=== PATIENT | male | born 1970 | race Caucasian/White ===

== ENCOUNTER 2017-02-27 16:22 | Inpatient (IN) | payer BC ==
[~2017-02-27] VITALS: Ht 193 cm; Wt 143.6 kg
--- NOTE | ~2017-02-27 | ECHO ---
Cardiac Stress Test Demographics Patient Name OMI THOMPSON Date of Study 02/28/2017 Patient Number [id number] Visit Number [id number] Date of 1970 Room Number G6307 Gender Male Number Age 46 year(s) Referring Maisha Grayson Interpreting Maisha Grayson Physician Physician MD Kraig Helton MD Physician Ordering Maisha Grayson Configuration Management Administrator Physician Supervising Maisha Grayson Stress Nancy VALDES MD/LITP MD Leadership Intern [facility] Nurse Tima Hein RN The procedure was explained in detail to the patient. Risks, complications and alternative treatments were reviewed. Written consent was obtained. Medications reviewed with patient prior to procedure. Procedure Type of Study Cardiac Stress Test:TREADMILL STRESS TEST. Procedure Date Date: 02/28/2017 Start: 12:38 PM Indications:Chest pain and Shortness of breath. Allergies - No known allergies. Conclusions Summary Duration:10:29 mins. Achieved: 95% MPHR. METs: 11.10. DP: 30 K. No chest pain. Reason for termination: Fatigue and SOB. EKG: No ischemia. No arrythmias. DTS: 10.3 (Low risk). Risk Factors - The patient's risk factor(s) include: treated dyslipidemia, obesity, lack of physical activity and treated arterial hypertension. Stress Protocol Stress Predicted HR: 172 bpm Signature dtt: Renuka Ferrera dtd: 02/28/17 1238 Physician Self Edit
--- NOTE | ~2017-02-27 | ER ---
PATIENT'S NAME: OMI THOMPSON [facility] AGE: 46 Y [address] ROOM: [place] [address] LOCATION: GPCU ADMIT DATE: 02/27/2017 ER/Outpatient Report DISCHARGE DATE: FAMILY PHYSICIAN: John Cornell MD ATTENDING PHYSICIAN: SABRINA SANTAMARIA Time of Arrival: 1622 hours. Time Seen: 1622 hours. IDENTIFICATION: A 46-year-old male. CHIEF COMPLAINT: Shortness of breath. HISTORY OF PRESENT ILLNESS: The patient is a 46-year-old male, who has had progressive shortness of breath with exertion over the last 6 months. Today, he was helping a friend move, became diaphoretic and short of breath. He states he has also began to get very diaphoretic over the last 6 months. He has a history of vasospastic angina. Had a cath with Dr. Ibrahim showing small vessel occlusion requiring no stents, just medical management in October 2015. The patient is on Ranexa b.i.d. and lisinopril, but again he has been more short of breath. Today, he was seen at [facility] and sent here for possible ST-elevation ID. He is having no chest pain, just been short of breath with exertion and very diaphoretic. No pain at this time. PAST MEDICAL HISTORY: ALLERGIES: NO KNOWN DRUG ALLERGIES. CURRENT MEDICATIONS: 1. Provigil 200 mg q.a.m. 2. Cymbalta 30 mg q.a.m. 3. Zonisamide 150 mg daily. 4. Pantoprazole 40 mg daily. 5. Simvastatin 20 mg daily. 6. Lisinopril 10 mg daily. 7. Ranexa 1000 mg b.i.d. 8. Meloxicam, he has not been taking. 9. Zyrtec 10 mg q.a.m. 10. Fish oil. 11. Mucus Relief. PATIENT'S NAME: OMI THOMPSON [facility] AGE: 46 Y [address] ROOM: [address] [address] LOCATION: GPCU ADMIT DATE: 02/27/2017 ER/Outpatient Report DISCHARGE DATE: FAMILY PHYSICIAN: John Cornell MD ATTENDING PHYSICIAN: SABRINA SANTAMARIA MEDICAL PROBLEMS: Vasospastic angina, sleep apnea, hypertension, gastroesophageal reflux disease. PRIOR SURGERIES: Cholecystectomy, appendectomy, adenoid, sinus surgery, and shoulder surgery. FAMILY HISTORY: No pertinent family history identified. SOCIAL HISTORY: The patient is . Lives here in [place]. Works for the [employer] [place]. Tobacco use, denies. Alcohol use, occasional. Drug use, denies. REVIEW OF SYSTEMS: All systems reviewed negative other than what is noted in the HPI. PHYSICAL EXAMINATION: VITAL SIGNS: Height 6 feet 4 inches, blood pressure 128/80, pulse 105, respirations 20, temperature 97.7, sats 95% on room air. GENERAL: A 46-year-old male, very diaphoretic and clammy, in no acute distress. HEAD: Normocephalic, atraumatic. EARS: TMs not visualized. EYES: Pupils equal and reactive to light and accommodation. Extraocular movements intact. NOSE: Mucosa pink. No lesions or drainage. MOUTH: No lesions. Pharynx benign. NECK: Supple. No lymphadenopathy. No thyromegaly. LUNGS: Clear to auscultation. HEART: Regular rate and rhythm. No murmur, rub, or gallop. ABDOMEN: Bowel sounds present. Soft, nondistended. No hepatosplenomegaly. No palpable masses. Nontender. SKIN: Diaphoretic and clammy. No lesions noted. NEURO: Motor strength 5/5 throughout. Sensation is intact to light touch. EXTREMITIES: No lower extremity edema. No calf tenderness. LABORATORY DATA AND X-RAYS: Chest x-ray, no acute process. Pending radiology over-read. Chemistry panel remarkable only for creatinine of 2.1. Cardiac enzymes are negative. ProBNP less than 30. D-dimer 0.28. CBC: White count 12.4, otherwise negative. INR 0.98. EKG from [facility] reviewed: Tachycardia at 102 beats per minute, inferior ST elevation. EKG here at 1623 hours: Sinus tachycardia at 105 beats per minute, slight ST elevation in lead II, no ST elevation in leads III or F, no reciprocal depression. Repeat EKG at 1642 hours: Sinus tachycardia at 108 beats per minute, slight ST elevation in lead II, no ST elevation in PATIENT'S NAME: OMI THOMPSON [facility] AGE: 46 Y [address] ROOM: [address] [address] [facility] ADMIT DATE: 02/27/2017 ER/Outpatient Report DISCHARGE DATE: FAMILY PHYSICIAN: John Cornell MD ATTENDING PHYSICIAN: SABRINA SANTAMARIA III or F, and no reciprocal depression. IMPRESSION: 1. Dyspnea on exertion. 2. Diaphoresis. 3. Vasospastic angina with nonspecific EKG changes. PLAN: Discussed with Dr. Ferrera, power sewing machine operator as well as Dr. Santamaria, hospitalist. The patient will be admitted per the hospitalist service for serial EKG, enzymes monitoring and on further evaluation of his shortness of breath on exertion, Dr. Ferrera will provide any necessary cardiology consultation. SHELIA TSANG MD CAR/modl /[id number] d: 02/27/172106 t: 03/01/174, OUTPATIENT REPORT
--- NOTE | ~2017-02-27 | HP ---
PATIENT'S NAME: DONNA [facility] AGE: 46 Y [address] ROOM: [place] [id number] LOCATION: GPCU ADMIT DATE: 02/27/2017 History & Physical DISCHARGE DATE: FAMILY PHYSICIAN: John Cornell MD ATTENDING PHYSICIAN: SABRINA MARTIN DATE OF SERVICE: CHIEF COMPLAINT: Shortness of breath. HISTORY OF PRESENT ILLNESS: A 46-year-old gentleman with a past medical history of vasospastic angina, obstructive sleep apnea and hypertension, who was admitted to the emergency department with shortness of breath, this started when he was helping moving his friend. He said he had been helping to move his friend for over 2 hours and then he started to feel short of breath and was not able to breathe for quite some time. He denied any dizziness, any headache, any chest pain, chest pressure, palpitation, abdominal pain, burning on urination, constipation or diarrhea in the recent days. He denied any cough, any sputum production. He came to emergency department after visiting Urgent Care and his shortness of breath resolved in the emergency department. He was given 4 baby aspirin. EKG done at the Urgent Care showed subtle ST-elevation in lead II and that triggered his transfer to the emergency department here. REVIEW OF SYSTEMS: All other systems reviewed and were negative except what is mentioned in the HPI. ALLERGIES: NO KNOWN DRUG ALLERGIES. PAST MEDICAL HISTORY: Vasospastic angina, obstructive sleep apnea, likely diagnosed with rheumatoid arthritis and hypertension. MEDICATIONS: Medications are being reconciled right now. FAMILY HISTORY: Significant for stroke in grandparents. PHYSICAL EXAMINATION: VITAL SIGNS: Blood pressure 128/80, pulse 105, respiratory rate of 20, and temperature afebrile. PATIENT'S NAME: [facility] AGE: 46 Y [address] ROOM: [address] [address] LOCATION: GPCU ADMIT DATE: 02/27/2017 History & Physical DISCHARGE DATE: FAMILY PHYSICIAN: John Cornell MD ATTENDING PHYSICIAN: SABRINA MARTIN GENERAL: No acute distress. Alert and oriented x3. HEENT: Head: Atraumatic, normocephalic. Eyes: Nonicteric. No pallor. Oropharynx: Dry mucous membranes. CARDIOVASCULAR: S1 and S2. No murmurs, gallops, or rubs. LUNGS: Clear to auscultation bilaterally. ABDOMEN: Soft, nontender, and nondistended. Bowel sounds present. EXTREMITIES: No clubbing, cyanosis, or edema. PSYCH: Normal mood and speech. NEUROLOGIC: Cranial nerves 2 through 12 intact. No motor or sensory deficit. ENDOCRINE: No thyromegaly or myxedema noted. MUSCULOSKELETAL: No muscle tenderness or joint swelling noted. LYMPHATIC: No lymphangiitis noted. DIAGNOSTIC DATA: Chest x-ray was done in the emergency department which did not reveal any acute changes. EKG was repeated in the emergency department which showed sinus tachycardia with some subtle ST-elevation in lead II. When compared to the previous EKG from 2014, there is no significant change. Initial troponin level was negative. Only significant finding was elevation of creatinine, which was up to 2.1. ASSESSMENT/PLAN: 1. Acute kidney injury. 2. Vasospastic angina. 3. Shortness of breath. 4. Obstructive sleep apnea. PLAN: We are going to admit this patient, give him volume resuscitation for his acute kidney injury. Repeat the labs as well. Continue to trend troponin levels. For his shortness of breath, it just could be just his physical deconditioning, but we will have Cardiology involved in this case. His cath done previously was negative for any changes. We will continue his home dose of Ranexa. We will follow the recommendation of Cardiology. DVT prophylaxis with heparin. Regular diet. Activity as tolerated. DuoNeb one time. MD IAM JACOME/misty /[id number] D: T: 655 HISTORY & PHYSICAL
--- NOTE | ~2017-02-27 | CON ---
PATIENT'S NAME: OMI OLIVA [facility] AGE: 46 Y [address] ROOM: [address] [address] LOCATION: GPCU ADMIT DATE: 02/27/2017 Consultation DISCHARGE DATE: 02/28/2017 FAMILY PHYSICIAN: John Cornell MD ATTENDING PHYSICIAN: SABRINA MARTIN DATE OF CONSULTATION: 02/28/2017 The patient of . Dear Colleagues: Thank you for asking me to see Mr. Oliva who is a 46-year-old, male patient who has been having trouble with his breathing since 2007. At that time, he underwent a cardiac catheterization and Dr. Lopez put him on a medication that helped him reasonably well for several years. Over the last 2-3 years or so, he has been having more and more trouble with his breathing and he had another cardiac catheterization in October of 2015 and his coronaries were clean and he underwent some changes in his medication. Even though, he is a little better, he continues to have symptoms in spells. Most of these are related to exertion. Even folding clothes at home or working around in the yard makes him break out in sweat and he has become short of breath and he has to take breaks. He has currently been in functional class 3 for the past several years. At the same time, he feels like a hot flash and denies any paroxysmal nocturnal dyspnea or orthopnea. He wears a CPAP and that has been checked several times. He denies any lightheadedness, dizziness, syncope, presyncope, palpitations, or ankle swelling. The patient has history of hypertension. He denies diabetes, elevated cholesterol or tobacco abuse. He has no family history of premature coronary artery disease. There is no prior history of CT or angina or nitroglycerin use. He denies rheumatic fever, heart murmur, heart failure, dilated or enlarged heart or any diagnosed cardiac arrhythmias. MEDICATIONS: 1. Duloxetine 30 mg a day. 2. Lisinopril 10 mg at bedtime. 3. Protonix 40 mg a day. 4. Provigil 200 mg a day. 5. Simvastatin 20 mg every evening. 6. Zonisamide 50 mg every p.m. 7. Continue CPAP and Ranexa 1 g b.i.d. PATIENT'S NAME: OMI OLIVA [facility] AGE: 46 Y [address] ROOM: [place] [address] LOCATION: GPCU ADMIT DATE: 02/27/2017 Consultation DISCHARGE DATE: 02/28/2017 FAMILY PHYSICIAN: John Cornell MD ATTENDING PHYSICIAN: SABRINA MARTIN ALLERGIES: NO KNOWN DRUG ALLERGIES. PAST MEDICAL HISTORY: 1. Left carpal tunnel syndrome surgery. 2. Cholecystectomy. 3. Appendectomy. 4. Right ankle surgery. 5. Scope left shoulder. 6. Sinus problems. 7. Tonsillectomy and adenoidectomy. 8. Left hand tremors for which he takes the zonisamide for. SOCIAL HISTORY: The patient is . He denies abusing alcohol. His appetite and weight are stable. Sleep is normal. FAMILY HISTORY: No premature coronary artery disease. REVIEW OF SYSTEMS: 1. Migraine headaches. 2. Bifocals. 3. Hearing aids. 4. . 5. Cough. 6. Wheezing occasionally. 7. Varicose veins in the right leg. 8. DJD. 9. Anxiety. PHYSICAL EXAMINATION: VITAL SIGNS: On examination, his blood pressure is 130/80, heart rate is in the 70s and regular, respiration is 18, afebrile. HEENT: Normal. NECK: Supple with no JVD, thyromegaly, lymphadenopathy or carotid bruit. HEART: PMI is not well located. First and second heart sounds are regular. There are no added sounds or murmurs. CHEST: Clear to auscultation. ABDOMEN: Obese, soft. EXTREMITIES: Reveal no edema. CENTRAL NERVOUS SYSTEM: Intact. ASSESSMENT: A 46-year-old, male patient with worsening shortness of breath. These are PATIENT'S NAME: OMI OLIVA [facility] AGE: 46 Y [address] ROOM: [place] [address] LOCATION: GPCU ADMIT DATE: 02/27/2017 Consultation DISCHARGE DATE: 02/28/2017 FAMILY PHYSICIAN: John Cornell MD ATTENDING PHYSICIAN: SABRINA MARTIN related to exertion and appears to have a combination of excessive sweating, shortness of breath, and hot flashes and he has to stop what he is doing. It seemed to be getting worse. He was tachycardic when he was seen in [facility] yesterday. He was asked to come to the emergency room thinking he was having acute CT, but his EKG was not suggestive of an acute CT. His initial enzymes and D-dimer were negative. His proBNP is unremarkable. RECOMMENDATION: 1. Treadmill exercise test. 2. Consider doing an echocardiogram today as well. 3. Further management plans will be based on the initial evaluation. Again, I appreciate this opportunity to participate in the care of Mr. Oliva. MD JANINE STRICKLAND/misty /[id number] d: 02/28/17 1803 t: 03/02/17 1226, CONSULTATION REPORT
--- NOTE | ~2017-02-27 | ECHO ---
Transthoracic Echocardiography Report (TTE) Demographics Patient Name OMI THOMPSON Date of Study 02/28/2017 Patient Number [id number] Visit Number [id number] Date of 1970 Room Number G6307 Gender Male Number Age 46 year(s) Referring Maisha Grayson [employer] Music Teacher Yesika Valentine RVT Physician MD Hina Helton MD Physician Interpreting Maisha Grayson Warp Tier Physician Supervising Ordering Maisha Grayson MD/MLP Physician Nurse Stress New Car Salesperson Conclusions Contractility Score Summary Normal Left Ventricular contractility was noted. Summary The estimated left ventricular ejection fraction is 50-55% with normal WM and internal dimension.Mild concentric left ventricular hypertrophy. Normal LA size. Normal LA pressures. Procedure Type of Study TTE procedure:2D Echocardiogram. Procedure Date Date: 02/28/2017 Start: 11:36 AM Study Location: Echo Lab Technical Quality: Adequate visualization Indications:Chest pain. Appropriate Use Criteria: 9 Patient Status: STAT HR: 54 bpm BP: 134/90 mmHg Allergies - No known allergies. M-Mode/2D Measurements LV Diastolic Dimension: 5.31 cm LV Systolic Dimension: 2.88 cm LV Septum Diastolic: 1.48 cm LV PW Diastolic: 1.34 cm AO Root Dimension: 3 cm Cardiac Output: 3.44 l/min AV Cusp Separation: 2.2 cm RV Diastolic Dimension: 2.89 cm LVOT: 2.5 cm LVOT VTI: 13 cm RV Base: 3.35 cm LV Stroke volume: 63.78 ml RV Length: 7.22 cm TAPSE: 1.8 cm TDI-S': 14.5 cm/s Doppler Measurements AV Peak Velocity: 1.33 m/s MV Peak E-Wave: 0.68 m/s AV Peak Gradient: 7.08 mmHg MV Peak A-Wave: 0.35 m/s AV Mean Gradient: 4 mmHg MV E/A Ratio: 1.97 LVOT Peak Velocity: 0.57 m/s MV P1/2t: 112 msec TR Gradient:8.29 mmHg PV Peak Velocity: 0.99 m/s PV Peak Gradient: 3.94 mmHg E' Septal Velocity: 0.08 m/s A' Septal Velocity: 0.12 m/s E' Lateral Velocity: 0.11 m/s A' Lateral Velocity: 0.1 m/s Findings Left Ventricle Mild concentric LVH with normal EF, internal dimension and WM. Right Ventricle Normal right ventricle structure and function. Left Atrium Normal left atrial size. Normal LA pressures. Right Atrium Normal right atrial size. Mitral Valve Trivial mitral regurgitation by color Doppler. Aortic Valve Normal aortic valve structure and function. Tricuspid Valve Trivial tricuspid regurgitation by color Doppler. Pulmonic Valve Normal pulmonic valve structure and function. Pericardial Effusion No evidence of pericardial effusion. Miscellaneous Visualized portions of the aortic root and ascending aorta appear normal in size. Pleural Effusion No evidence of pleural effusion. Contractility Score LV regional wall motion:(0-Non visualized 1-Normal 2-Hypokinesis 3-Akinesis 4-Dyskinesis 5-Aneurysm) Signature dtt: Renuka Ferrera dtd: 02/28/17 1136 Physician Self Edit
--- NOTE | ~2017-02-27 | DS ---
PATIENT'S NAME: OMI THOMPSON [facility] AGE: 46 Y [address] ROOM: [address] [address] LOCATION: GPCU ADMIT DATE: 02/27/2017 Discharge Summary DISCHARGE DATE: 02/28/2017 FAMILY PHYSICIAN: John Cornell MD ATTENDING PHYSICIAN: Thu Santamaria PRINCIPAL DIAGNOSES: 1. Shortness of breath, likely exercise-induced asthma. 2. Acute kidney injury. 3. Obstructive sleep apnea. 4. Vasospastic angina. HOSPITAL COURSE: A 46-year-old gentleman with a past medical history and diagnosis of vasospastic angina, on Ranexa, was admitted to the hospital with shortness of breath on exertion. His EKG was initially, which was unchanged from previous EKG, troponin levels were all within normal limits. He had a creatinine up to 2.1 on admission to the hospital. Echocardiography was done, which was unremarkable. Exercise treadmill stress testing was done, which did not reveal any significant abnormalities. With the fluid resuscitation, creatinine came down to 1.5 and further resuscitation was continued. Consideration for exercise induced asthma was considered and he was discharged home on albuterol. He needs to follow up with the primary care physician in 1 week for consideration of testing for PFTs. DISCHARGE MEDICATIONS: Include duloxetine 30 mg p.o. every day, modafinil 200 mg p.o. every day, pantoprazole 40 mg p.o. every day before breakfast, Ranexa 1000 mg p.o. twice daily, lisinopril 10 mg p.o. at night at bedtime, Zocor 20 mg p.o. every night at 2100 hours, Zonisamide 150 mg p.o. every morning, and CPAP. New medication, albuterol for shortness of breath q.4 hours as needed. DIET: As tolerated. ACTIVITY: As tolerated. MD IAM JACOME/misty /[id number] d: 03/01/17 0147 t: 03/02/17 0354, DISCHARGE SUMMARY
[~2017-02-27 16:22] MED LIST: CPAP INH; CYMBALTA30 MG PO; FISH OIL1000 MG PO; MUCOMYST 20200 MG/M1 PO; MUCUS RELIEF C400 MG PO; PRINIVIL OR ZES10 MG PO; PROTONIX40 MG PO; PROVIGIL200 MG PO; ZOCOR20 M1 PO; ZONISAMIDE50 MG PO; ZYRTEC10 MG PO
[2017-02-27 16:50] LABS: BASOPHIL # 0.1 K/uL (0.0-0.2); BASOPHIL % 0.5 %; EOSINOPHIL # 0.5 K/uL (0.0-0.5); EOSINOPHIL % 3.7 %; HEMATOCRIT 46.8 % (37.0-53.0); HEMOGLOBIN 16.3 g/dL (12.0-17.0); IMMATURE GRANULOCYTE # 0.1 K/uL (0.0-0.3); IMMATURE GRANULOCYTE % 0.7 %; LYMPHOCYTE # 3.4 K/uL (0.8-4.0); LYMPHOCYTE % 27.2 %; MCH 31.5 pg (27.0-34.0); MCHC 34.8 gm/dL (32.0-36.5); MCV 90.5 fl (83.0-98.0); MONOCYTE # 0.9 K/uL (0.0-1.0); MONOCYTE % 6.9 %; MPV 9.9 fl (9.4-12.4); NEUTROPHIL # (ANC) 7.6 K/uL (1.4-9.0); NRBC % 0 /100WBC (0-0.00); PLATELET COUNT 263 K/uL (150-450); RBC 5.17 M/uL (4.00-6.00); WBC 12.4 K/uL (4.0-11.0)
[2017-02-27 16:56] LABS: INR - (THERAPEUTIC) 0.98 (0.92-1.07); PROTIME 10.3 SECONDS (9.8-11.4); PTT 24 SECONDS (25-32)
[2017-02-27 17:09] LABS: ALBUMIN 4.5 gm/dL (3.5-5.0); ALK PHOS 62 IU/L (33-138); ALT 68 IU/L (12-78); ANION GAP 13.8 (10.0-19.0); AST 29 IU/L (10-40); BLOOD UREA NITROGEN 16 mg/dL (6-24); CALCIUM 9.5 mg/dL (8.5-10.5); CHLORIDE 109 mMol/L (96-110); CO2 24 mMol/L (22-32); CPK 131 IU/L (35-332); CREATININE 2.1 mg/dL (0.6-1.3); MAGNESIUM 2.2 mg/dL (1.8-2.6); POTASSIUM 3.8 mMol/L (3.7-5.1); SODIUM 143 mMol/L (135-145); TOTAL BILIRUBIN 0.5 mg/dL (0.0-1.5); TOTAL PROTEIN 7.7 g/dL (6.0-8.4)
[2017-02-27] MEDS ORDERED: PROVIGIL200 MG PO (19:32)
[2017-02-27] MEDS ORDERED: RANEXA ER500 MG PO (19:34)
[2017-02-27 21:21] LABS: CPK 110 IU/L (35-332)
[2017-02-28 03:26] LABS: BASOPHIL # 0.1 K/uL (0.0-0.2); BASOPHIL % 0.6 %; EOSINOPHIL # 0.5 K/uL (0.0-0.5); EOSINOPHIL % 5.2 %; HEMATOCRIT 40.5 % (37.0-53.0); IMMATURE GRANULOCYTE % 0.4 %; LYMPHOCYTE # 3.5 K/uL (0.8-4.0); LYMPHOCYTE % 37.9 %; MCH 31.5 pg (27.0-34.0); MCHC 34.6 gm/dL (32.0-36.5); MCV 91.2 fl (83.0-98.0); MONOCYTE # 0.6 K/uL (0.0-1.0); MONOCYTE % 6.9 %; NEUTROPHIL # (ANC) 4.5 K/uL (1.4-9.0); NRBC % 0 /100WBC (0-0.00); PLATELET COUNT 218 K/uL (150-450); RBC 4.44 M/uL (4.00-6.00); RDW-CV 13.1 % (11.9-14.6); WBC 9.3 K/uL (4.0-11.0)
[2017-02-28 03:43] LABS: CPK 84 IU/L (35-332)
[2017-02-28 03:59] LABS: ALBUMIN 3.5 gm/dL (3.5-5.0); ANION GAP 10.5 (10.0-19.0); CALCIUM 8.6 mg/dL (8.5-10.5); CREATININE 1.5 mg/dL (0.6-1.3); POTASSIUM 3.5 mMol/L (3.7-5.1); TOTAL PROTEIN 6.1 g/dL (6.0-8.4)
[2017-02-28 04:02] LABS: TOTAL BILIRUBIN 0.3 mg/dL (0.0-1.5)
[2017-02-28] MEDS ORDERED: PROVENTIL OR V6.7 GM INH (17:44)
== END 2017-02-28 18:05 | disposition disaster alternative care site (69) | DRG 202 ==
LOC: GMED 16:22 → GPCU 17:44
PROVIDERS: Family Medicine; ADMIT Internal Medicine
DX: J45.990 Exercise induced bronchospasm (principal); N17.9 Acute kidney failure, unspecified; G47.33 Obstructive sleep apnea (adult) (pediatric); I10 Essential (primary) hypertension; Z90.49 Acquired absence of other specified parts of digestive tract; I83.91 Asymptomatic varicose veins of right lower extremity; M19.90 Unspecified osteoarthritis, unspecified site; F41.9 Anxiety disorder, unspecified; Z97.4 Presence of external hearing-aid; I20.9 Angina pectoris, unspecified
CPT/HCPCS: J1644; J7030; J7120